=== PATIENT | male | born 1995 | race Caucasian/White ===

== ENCOUNTER → 2019-03-09 14:53 | Outpatient (CLI) | payer OTHER, SELFPAY ==
[2019-03-09 19:53] LABS: Amphetamine/Metha Screen,Urine Positive ng/mL (<1000); Barbiturates Screen,Urine Negative ng/mL (<200); Benzodiazepines Screen,Urine Positive ng/mL (<200); Cannabinoid Screen,Urine Positive ng/mL (<50); Cocaine Screen,Urine Positive ng/mL (<300); Methadone Screen,Urine Negative ng/mL (<300); Opiate Screen,Urine Negative ng/mL (<300); Phencyclidine Screen,Urine Negative ng/mL (<25)
== END ==
PROVIDERS: Visit Provider Nurse Practitioner Psychiatric/Mental Health
DX: Z02.83 Encounter for blood-alcohol and blood-drug test (principal)
CPT/HCPCS: 80305

== ENCOUNTER → 2019-04-27 14:45 | Outpatient (POV) | payer OTHER, SELFPAY | PROVIDERS: Visit Provider Dermatology | DX: Z00.00 Encounter for general adult medical examination without abnormal findings (principal) ==

== ENCOUNTER → 2019-05-05 17:01 | Outpatient (CLI) | payer OTHER, SELFPAY ==
[2019-05-10 09:22] LABS: Amphetamines IA NEGATIVE; Barbituates IA NEGATIVE
[2019-05-10 09:23] LABS: Benzodiazepines IA NEGATIVE; Cocaine & Metabolites IA NEGATIVE
[2019-05-10 09:24] LABS: Phencyclidine IA NEGATIVE
[2019-05-10 09:25] LABS: Opiates IA NEGATIVE; THC (marijauna) metabolite IA NEGATIVE
[2019-05-10 09:26] LABS: Methadone IA NEGATIVE; Oxycodone IA NEGATIVE
[2019-05-10 09:28] LABS: Propoxyphene IA NEGATIVE
== END ==
PROVIDERS: Visit Provider Nurse Practitioner Psychiatric/Mental Health
DX: Z79.899 Other long term (current) drug therapy (principal)
CPT/HCPCS: 36415; 80307

== ENCOUNTER 2019-12-13 18:38 | Emergency (ER) | payer OTHER, SELFPAY ==
[2019-12-13 18:49] VITALS: BP 144/87; PULSE 112; RESP 18; TEMP 36.4; O2SAT 96; BMI 27.3
[2019-12-13 18:59] VITALS: BP 144/87; PULSE 112; RESP 18; TEMP 36.4; O2SAT 96; BMI 27.3
--- NOTE | 2019-12-13 19:12 | HMH.EDUTC ---
[facility] [place] Clinical Impression: Abscess of left leg Cellulitis Qualifiers: Site of cellulitis: extremity Site of cellulitis of extremity: lower extremity Laterality: left Qualified Code(s): L03.116 - Cellulitis of left lower limb Disposition: Home, Self-Care Condition on Discharge: Good Instructions: Cellulitis, Boil Additional Instructions: Apply warm wet compresses to the affected sites three or four times per day for 15 minutes as tolerated. Take the antibiotics as directed. Apply the topical antibiotics (mupirocin) as directed. Follow up with your regular doctor. GO TO THE ER FOR ANY WORSENING SYMPTOMS OR CONCERNS Prescriptions: Ibuprofen [Ibuprofen 800mg Tablet] 800 mg PO Q8HP PRN #20 tab PRN Reason: Moderate Pain Transmission Status: Received by [id number] Sulfamethoxazole/Trimethoprim [Bactrim DS tablet] 1 each PO BID 10 Days #20 tab Transmission Status: Received by [id number] Mupirocin [Bactroban 2% Ointment 22gm tube] 1 applicatio TP TID 7 Days #1 tube Transmission Status: Received by [id number] cephALEXin [Keflex 500mg Cap] 500 mg PO Q6H 10 Days #40 cap Transmission Status: Received by [id number] Referrals: Patrick Tineo MD [Primary Care Provider] - Forms: Work/School Release Time of Disposition: 19:25 Medical Decision Making - Medical Records Medical records reviewed: No: I reviewed the patient's medical records. - Souleymane Inquiry Pt receiving controlled substance: No Vital Signs: 12/13/19 18:49 12/13/19 18:59 12/13/19 19:45 Temperature 97.5 F L 97.5 F L 97.5 F L Temperature Source Oral Oral Pulse Rate 112 H Pulse Rate [Left Radial] 112 H 112 H Respiratory Rate 18 18 18 Blood Pressure 144/87 H Blood Pressure [Right Arm] 144/87 H 144/87 H Blood Pressure Mean [Right Arm] 106 106 Blood Pressure Source [Right Arm] Automatic Cuff Blood Pressure Position [Right Arm] Sitting 02 Sat by Pulse Oximetry 96 96 Oxygen Delivery Method Room Air Room Air Orders (Tests/Meds): ED MEDICATIONS Discontinued Medications Generic Name Dose Route Start Last Admin Trade Name Freq PRN Reason Stop Dose Admin Ceftriaxone Sodium 1 gm 09/07/20 19:14 12/13/19 19:25 Rocephin 1gm Vial IM 12/13/19 19:15 1 gm ONCE ONE Administration Protocol Lidocaine HCl 0 ml 12/13/19 19:14 12/13/19 19:25 Lidocaine 1% 10ml Mdv IM 12/13/19 19:15 2.1 ml ONCE ONE Administration ORDERS Category Date Time Status Wound Culture and Gram Stain Stat Micro 12/13/19 19:15 Results [facility] [place] - General Stated complaint: left leg pain, open sore infection Time Seen by Provider: 12/13/19 19:12 Mode of Arrival: Ambulatory Source of Information: Patient Limitations: No Limitations Description of Symptoms (Recalled from Triage Doc. by RN): PATIENT C/O RED, SCABBED, AND PAINFUL AREA BEHIND LEFT KNEE HEENT Symptoms (Recalled from RN notes): No Resp Symptoms (Recalled from RN notes): No Skin Symptoms (Recalled from RN notes): Yes MS Symptoms (Recalled from RN notes): No Functional Status (Recalled from RN notes): WNL - History of Present Illness Provider Complaint: He states that over the past 1 week, he has had a sore place on the back of his left knee. He states that it got more swollen and painful around it over the past 2 days. - Related Data Home Medications Medication Instructions Recorded Confirmed lisinopril 10 mg tablet 10 mg PO DAILY 05/10/19 09/02/19 Previous Rx's Medication Instructions Recorded fluticasone furoate 100 1 inh INHALATION DAILY #60 each 06/15/19 mcg-vilanterol 25 mcg/dose inhalation powder albuterol sulfate 90 mcg/actuation 1 inh INHALATION QID PRN #6.7 g 10/13/19 aerosol inhaler lisdexamfetamine 50 mg capsule 50 mg PO DAILY #30 cap 10/28/19 lisdexamfetamine 50 mg capsule 50 mg PO DAILY #30 cap 11/26/19 Ibuprofen [Ibuprofen 800mg 800 mg PO Q8HP PRN #20 tab 12/13/19 T
[2019-12-13 19:45] VITALS: BP 144/87; PULSE 112; RESP 18; TEMP 36.4; O2SAT 96
== END 2019-12-13 19:47 | disposition home or self-care (01) ==
PROVIDERS: Emergency Provider Nurse Practitioner Family; PCP Emergency Medicine
DX: L03.116 Cellulitis of left lower limb (principal); F17.210 Nicotine dependence, cigarettes, uncomplicated
CPT/HCPCS: 87070; 87077; 87186; 87205; 96372; 99201

== ENCOUNTER 2019-12-13 20:11 | Emergency (ER) | payer OTHER, SELFPAY ==
[2019-12-13 20:13] VITALS: BP 157/100; PULSE 87; RESP 16; TEMP 36.9; O2SAT 95; BMI 27.3
--- NOTE | 2019-12-13 20:31 | PC.NURSE ---
at bedside with US machine examining pt leg
[2019-12-13 20:43] LABS: Basophils # 0.1 K/mm3 (0-0.2); Basophils % 0.6 % (0.1-2.0); Eosinophils # 0.2 K/mm3 (0.0-0.4); Eosinophils % 1.8 % (0.1-12.0); Lymphocytes # 1.5 K/mm3 (0.7-4.5); Lymphocytes % 15.6 % (10-50); Mean Corpuscular HGB Conc 34.9 g/dL (31.8-35.4); Mean Corpuscular Hemoglobin 35.6 pg (27.0-31.2); Mean Platelet Volume 7.9 fl (7.4-10.4); Monocytes # 0.6 K/mm3 (0.1-1.0); Monocytes % 6.5 % (1.7-9.3); Neutrophils # 7.2 K/mm3 (1.8-7.8); Neutrophils % 75.5 % (37.0-80.0); Platelet Count 216 K/mm3 (142-424); Red Blood Count 5.19 M/mm3 (4.60-6.20); Red Cell Distribution Width 12.7 % (11.5-17.5); White Blood Count 9.6 K/mm3 (4.8-10.8)
[2019-12-13 20:46] LABS: Chloride 101 mmol/L (98-107); Potassium 3.2 mmoL/L (3.5-5.1); Sodium 142 mmol/L (136-145)
[2019-12-13 20:49] LABS: Alanine Aminotransferase 181 U/L (12-78); Alkaline Phosphatase 99 U/L (38-126); Anion Gap 15.2 mEq/L (5-15); Aspartate Amino Transferase 215 U/L (17-59); Bilirubin,Total 1.2 mg/dl (0.2-1.3); Blood Urea Nitrogen 4 mg/dl (9-20); Carbon Dioxide 29 mmol/L (22.0-30.0); Creatinine Clearance Estimated 145 mL/min (50-200); Estimated Glomerular Filt Rate 103 ml/min (>60); GFR (African American) 124 ML/MIN (>60)
[2019-12-13 20:50] LABS: Albumin Level 4.2 g/dl (3.5-5.0); Albumin/Globulin Ratio 1.3 (1.1-1.8); Globulin 3.2 g/dL (1.3-3.2); Glucose 121 mg/dl (74-100); Hemoglobin 18.7 g/dL (14.1-18.0); Total Protein,Serum 7.4 g/dl (6.3-8.2)
[2019-12-13 20:51] LABS: Lactic Acid 2.1 mmol/L (0.7-2.1)
--- NOTE | 2019-12-13 20:51 | HMH.EDGENADL ---
ED Disposition Clinical Impression: Cellulitis Qualifiers: Site of cellulitis: extremity Site of cellulitis of extremity: lower extremity Laterality: left Qualified Code(s): L03.116 - Cellulitis of left lower limb Disposition: Home, Self-Care Condition on Discharge: Good Instructions: DI for Skin Abscess, Cellulitis Additional Instructions: please obtain a repeat CMP to evaluate your liver enzymes. Prescriptions: Sulfamethoxazole/Trimethoprim [Bactrim DS tablet] 1 each PO BID #14 tab Prescription Printed cephALEXin [Cephalexin 500mg Tab] 500 mg PO Q6H #28 tab Prescription Printed Referrals: Patrick Tineo MD [Primary Care Provider] - - Critical Care Critical Care Time: No Attestation: On 12/13/19, the high probability of a clinically significant, sudden or life threatening deterioration of the following system(s) required my full and direct attention, intervention and personal management. The time I documented below is in addition to time spent performing reported procedures but includes the following listed in this critical care notation. Medical Decision Making - Medical Records Medical records reviewed: Yes: I reviewed the patient's medical records. - Souleymane Inquiry Pt receiving controlled substance: No Vital Signs: 12/13/19 20:13 Temperature 98.5 F Temperature Source Oral Pulse Rate [Right] 87 Respiratory Rate 16 Blood Pressure [Right Arm] 157/100 H Blood Pressure Mean [Right Arm] 119 Blood Pressure Source [Right Arm] Automatic Cuff Blood Pressure Position [Right Arm] Sitting 02 Sat by Pulse Oximetry 95 Oxygen Delivery Method Room Air - Lab Data Lab Results 12/13/19 20:20: WBC 9.6, RBC 5.19, Hgb 18.7 H*, Hct 53.0 H, MCV 102.0 H, MCH 35.6 H, MCHC 34.9, RDW 12.7, Plt Count 216, MPV 7.9, Neut % (Auto) 75.5, Lymph % (Auto) 15.6, Ramsey % (Auto) 6.5, Eos % (Auto) 1.8, Baso % (Auto) 0.6, Neut # (Auto) 7.2, Lymph # (Auto) 1.5, Ramsey # (Auto) 0.6, Eos # (Auto) 0.2, Baso # (Auto) 0.1, ESR 2 12/13/19 20:20: Sodium 142, Potassium 3.2 L, Chloride 101, Carbon Dioxide 29, Anion Gap 15.2 H, BUN 4 L, Creatinine 0.90, Estimated Creat Clear 145, Estimated GFR 103, Est GFR ( Amer) 124, Glucose 121 H, Calcium 9.0, Total Bilirubin 1.2, AST 215 H, ALT 181 H, Alkaline Phosphatase 99, C-Reactive Protein 4.2 H, Total Protein 7.4, Albumin 4.2, Globulin 3.2, Albumin/Globulin Ratio 1.3 12/13/19 20:20: Lactate 2.1 Result diagrams: 12/13/19 20:20 12/13/19 20:20 Orders (Tests/Meds): ED MEDICATIONS Discontinued Medications Generic Name Dose Route Start Last Admin Trade Name Freq PRN Reason Stop Dose Admin Cephalexin HCl 500 mg 12/13/19 20:57 Cephalexin 500mg Capsule PO 12/13/19 20:58 ONCE ONE Protocol Potassium Chloride 30 meq 12/13/19 20:56 Micro-K 10meq Capsule PO 12/13/19 20:57 ONCE ONE Trimethoprim/Sulfamethoxazole 1 each 12/13/19 20:57 Bactrim Ds Tablet PO 12/13/19 20:58 ONCE ONE Protocol ORDERS Category Date Time Status Blood Culture Stat Micro 12/13/19 20:20 Received Medical Decision Narrative: In summary patient is a 24-year-old male presenting for rash. On examination patient appears to have cellulitis, patient did not meet Sirs criteria given white count, lack of tachycardia tachypnea and temperature. Patient bedside ultrasound demonstrating no abscess or drainable fluid collection. Ultrasound findings consistent with cellulitis. Patient was given IM Rocephin, given his history of abscesses he possibly has MRSA, this will not cover. Patient was given Bactrim and Keflex. Patient was discharged home. Blood cultures were obtained. Patient amenable to plan. Patient given 1 L bolus of lactated Ringer's and labs significant for hypokalemia. Potassium was repleted. Patient did have elevated liver enzymes however not significant elevated. Patient to follow-up with a primary care doctor for repeat CMP in 1 week. General Adult HPI
[2019-12-13 20:55] LABS: C-Reactive Protein 4.2 mg/L (0-4)
[2019-12-13 21:08] LABS: Erythrocyte Sedimentation Rate 2 mm/hr (0-15)
[2019-12-13 21:29] VITALS: BP 147/98; PULSE 85; RESP 16; TEMP 36.8; O2SAT 98
== END 2019-12-13 21:31 | disposition home or self-care (01) ==
PROVIDERS: Emergency Provider Emergency Medicine; PCP Emergency Medicine
DX: L03.116 Cellulitis of left lower limb (principal); I10 Essential (primary) hypertension; F17.210 Nicotine dependence, cigarettes, uncomplicated
CPT/HCPCS: 80053; 83605; 85025; 85651; 86140; 87040; 99283

== ENCOUNTER 2021-12-14 10:11 | Observation (INO) | payer OTHER, SELFPAY ==
[2021-12-14] VITALS (13 sets, daily range): BP systolic 123–162; BP diastolic 74–111; PULSE 72–97; RESP 16–181; TEMP 36.6–36.9; O2SAT 96–99; BMI 27.3; BMI 26.8
[2021-12-14 10:42] LABS: Microscopic, Urine URINE MICROSCOPIC (MICROSCOPIC)
[2021-12-14 10:44] LABS: Basophils # 0.1 K/mm3 (0-0.2); Basophils % 1.2 % (0.1-2.0); Eosinophils # 0.1 K/mm3 (0.0-0.4); Hematocrit 50.6 % (42.0-52.0); Hemoglobin 17.2 g/dL (14.1-18.0); Lymphocytes # 0.7 K/mm3 (0.7-4.5); Lymphocytes % 9.3 % (10-50); Mean Corpuscular HGB Conc 33.9 g/dL (31.8-35.4); Mean Corpuscular Hemoglobin 34.9 pg (27.0-31.2); Mean Platelet Volume 8.8 fl (7.4-10.4); Monocytes # 0.5 K/mm3 (0.1-1.0); Monocytes % 6.3 % (1.7-9.3); Neutrophils # 6.4 K/mm3 (1.8-7.8); Neutrophils % 82.2 % (37.0-80.0); Platelet Count 185 K/mm3 (142-424); Red Blood Count 4.92 M/mm3 (4.60-6.20); Red Cell Distribution Width 13.2 % (11.5-17.5); White Blood Count 7.8 K/mm3 (4.8-10.8)
[2021-12-14 10:45] LABS: Appearance,Urine CLEAR (Clear); Blood, Urine Negative (Negative); Color,Urine ORANGE (Yellow); Glucose,Urine (UA) TRACE (Negative); Ketones,Urine TRACE (Negative); Leukocyte Esterase,Urine Negative (Negative); Nitrate,Urine POSITIVE (Negative); PH,Urine 6.5 (5.0-8.5); Protein,Urine 1+ (Negative); Specific Gravity, Urine 1.025 (1.005-1.030); Urobilinogen,Urine >=8.0 EU/dl (0.2)
[2021-12-14 10:47] LABS: Bilirubin,Urine 2+ (Negative)
[2021-12-14 10:51] LABS: Alanine Aminotransferase 174 U/L (12-78); Albumin Level 4.7 g/dl (3.5-5.0); Albumin/Globulin Ratio 1.3 (1.1-1.8); Alkaline Phosphatase 127 U/L (38-126); Anion Gap 14.3 mEq/L (5-15); Aspartate Amino Transferase 191 U/L (17-59); Bilirubin,Total 2.9 mg/dl (0.2-1.3); Blood Urea Nitrogen 3 mg/dl (9-20); Calcium 9.2 mg/dl (8.4-10.2); Carbon Dioxide 31 mmol/L (22.0-30.0); Chloride 96 mmol/L (98-107); Creatinine Clearance Estimated 183 mL/min (50-200); Estimated Glomerular Filt Rate 135 ml/min (>60); GFR (African American) 164 ML/MIN (>60); Globulin 3.6 g/dL (1.3-3.2); Glucose 130 mg/dl (74-100); Lipase 536 U/L (23-300); Potassium 3.3 mmoL/L (3.5-5.1); Sodium 138 mmol/L (136-145); Total Protein,Serum 8.3 g/dl (6.3-8.2)
[2021-12-14 10:52] LABS: Ethyl Alcohol 153 mg/dl (0-10)
[2021-12-14 10:59] LABS: WBC,Urine Occasional #/hpf (0-3)
--- NOTE | 2021-12-14 10:59 | CT_ITS ---
FINAL REPORT CLINICAL HISTORY: abdominal pain, luq pain FINDINGS: CT OF THE ABDOMEN AND PELVIS WITH CONTRAST Axial CT images of the abdomen and pelvis were obtained after the administration of intravenous contrast. Coronal reformatted images were also obtained and reviewed.This study was performed with techniques to keep radiation doses as low as reasonably achievable (ALARA). Individualized dose reduction techniques using automated exposure control or adjustment of mA and/or kV according to the patient's size were employed. Abdomen: The lung bases are clear. The heart is normal in size. There is mild fatty infiltration of the liver. The gallbladder is present. The spleen is unremarkable. No adrenal mass is present. The pancreas has an unremarkable appearance. The kidneys are normal, without evidence of mass or hydronephrosis. The aorta is normal in caliber. There is no free fluid or adenopathy. No mass or abnormal fluid collection is seen. There are multiple fluid-filled small bowel loops that are nonspecific and could represent enteritis. There is a small umbilical hernia containing fat. Pelvis: The appendix is normal. The urinary bladder is unremarkable. No inflammatory process is seen. There is no evidence of mass or adenopathy. There is no evidence of bowel obstruction. IMPRESSION: Multiple fluid-filled small bowel loops are nonspecific and could represent enteritis. Reviewed, Interpreted and Dictated by Jose G Szymnaski III, MD Transcribed by Edson Gaines Authenticated and [facility]
[2021-12-14 11:00] LABS: Bacteria,Urine Trace /lpf; Mucus,Urine 2+ /lpf
[2021-12-14 11:11] LABS: Amphetamine/Metha Screen,Urine Negative ng/ml (<1000); Barbiturates Screen,Urine Negative ng/ml (<200)
[2021-12-14 11:12] LABS: Benzodiazepines Screen,Urine Negative ng/ml (<200)
[2021-12-14 11:13] LABS: Cannabinoid Screen,Urine Positive ng/ml (<50); Cocaine Screen,Urine Negative ng/ml (<300)
[2021-12-14 11:14] LABS: Methadone Screen,Urine Negative ng/ml (<300); Phencyclidine Screen,Urine Negative ng/ml (<25)
[2021-12-14 11:15] LABS: Opiate Screen,Urine Negative ng/ml (<300)
--- NOTE | 2021-12-14 11:41 | PC.NURSE ---
COVID SWAB SENT TO LAB
[2021-12-14 11:42] LABS: Coronavirus 19, PCR Not Detected (NotDetected); Influenza A, PCR Not Detected (NotDetected); Influenza B, PCR Not Detected (NotDetected)
--- NOTE | 2021-12-14 11:51 | PC.NURSE ---
PT IN CT
--- NOTE | 2021-12-14 11:55 | HMH.EDGENADL ---
Discharge Plan Disposition Patient Disposition: Admitted As Inpatient Condition: Good Chief Complaint: Abdominal Pain Clinical Impressions Clinical Impression: Pancreatitis, Acute hypokalemia Discharge ED Provider: Charleen Gee HPI General Chief complaint: Abdominal Pain Stated complaint: left side pain Time Seen by Provider: 12/14/21 10:28 Mode of Arrival: Ambulatory Source of Information: Patient Limitations: No Limitations Description of Symptoms (Recalled from ER Triage Doc. by RN): to ed per pvt car with c/o upper abd pain, vomiting, diff urinating, dark urine x 3 days. pt states he drinks ETOH 1.5 pints daily. pt states he would like to go to rehab for etoh abuse. History of Present Illness HPI narrative: The patient is a 26 year old male with a history of alcohol abuse who presents to the ED with abdominal pain. He states that it has been going on for a few days and keeping him up at night. It is associated with nonbloody nonbilious N/V. He has never had pancreatitis but he feels like thats what it might be. He has had subjective fever/chills. No diarrhea, chest pain, shortness of breath, headache. His last drink was early this morning around maybe 4 or 5 am. He drinks daily for the last 5 years. He says he has stopped for periods before and never had a withdrawal seizure but did feel like he had DTs and was confused, tremulous, etc. He is interested in rehab. Related Data Home Medications Medication Instructions Recorded Confirmed albuterol sulfate 90 mcg/actuation 1 inh inhalation QIDP PRN 12/14/21 12/14/21 aerosol inhaler (Proventil HFA) shortness of breath or wheezing Allergies Allergy/AdvReac Type Severity Reaction Status Date / Time No Known Allergies Allergy Verified 01/30/21 13:46 [facility] Social History Smoking Status: Never smoker alcohol intake: current counseling given: Yes substance use type: denies use current occupational status: employed Travel in the last 8 weeks: None number of children: 0 ROS Obtained: Yes Systems reviewed as appropriate & no additional complaints except as documented Physical Exam General General appearance: alert and in no apparent distress Head Head exam: atraumatic and normocephalic Eye Eye exam: Present PERRL and EOMI; Absent scleral icterus ENT ENT exam: Present normal exam Neck Neck exam: Present normal inspection Chest Chest inspection: Present normal inspection and symmetric chest wall rise Respiratory Respiratory exam: Absent respiratory distress or accessory muscle use Cardiovascular Cardiovascular exam: Present regular rate and normal rhythm Abdominal Exam Abdominal exam: Present soft and tenderness; Absent distention Abdominal tenderness: Present LUQ and epigastrium; Absent RUQ Neurological Exam Neurological exam: Present alert, oriented X3 and CN II-XII intact Medical Decision Making Medical Records Medical records reviewed: Yes I reviewed the patient's medical records. Souleymane Inquiry Pt receiving controlled substance: No Vital Signs: 12/14/21 10:12 12/14/21 10:35 12/14/21 11:00 Temperature 98 F Temperature Source Oral Pulse Rate 85 82 Pulse Rate [Radial] 97 H Respiratory Rate 20 18 181 H Blood Pressure 162/101 H 152/99 H Blood Pressure [Right Arm] 162/105 H Blood Pressure Mean 116 115 Blood Pressure Mean [Right Arm] 124 Blood Pressure Position [Right Arm] Sitting 02 Sat by Pulse Oximetry 97 99 98 Oxygen Delivery Method Room Air 12/14/21 11:31 12/14/21 12:00 12/14/21 12:30 Temperature Temperature Source Pulse Rate 86 72 80 Pulse Rate [Radial] Respiratory Rate 18 18 Blood Pressure 144/96 H 157/109 H 152/111 H Blood Pressure [Right Arm] Blood Pressure Mean 112 125 125 Blood Pressure Mean [Right Arm] Blood Pressure Position [Right Arm] 02 Sat by Pulse Oximetry 99 99 96 Oxygen Delivery Method
--- NOTE | 2021-12-14 12:58 | PC.NURSE ---
spoke with nadege coker at this time r/t care management consult. Nadege asked if pt has a preference on a facility to go to. Pt reports to me he has been to [facility] in [place] previously and said he would be okay to go back there.
--- NOTE | 2021-12-14 13:07 | PC.NURSE ---
DAWSON GÓMEZ speaking with Dr. Garner who is electronic system engineer for service pts.
--- NOTE | 2021-12-14 13:11 | SW/DCPLANNER ---
Addendum entered by Nadege Singer 12/17/21 10:19: Patient will discharge to [facility]. [facility] will send transportation for this patient. Addendum entered by Nadege Singer 12/17/21 09:37: Per Admissions w/ [facility] this patient has been accepted to [facility] or [place] location and can discharge today. [facility] has stated they will need to speak with patient this AM. I have notified patient to make contact w/ Admissions Dept at [facility] this AM. Addendum entered by Nadege Singer 12/17/21 08:08: Patient is medically stable for discharge today. Patient expressed that he is still interested in [facility] once medically stable for discharge. Patient is ready for discharge today. I have asked patient to please contact [facility] this AM in regards of being stable for discharge today. Addendum entered by Nadege Singer 12/14/21 13:41: Patient speaking with intake at [facility]. Original Note: I received a referral for this patient regarding etoh abuse. Patient stated that he has been to [facility] in [place] in the past and would prefers to return there for rehab. I called and spoke with Intake at [facility] and patient information has been faxed. I will provide this patient with phone number ([phone]) to call and speak with Intake.
--- NOTE | 2021-12-14 13:15 | PC.NURSE ---
notified care management of admission, spoke with quintin
--- NOTE | 2021-12-14 13:20 | PC.NURSE ---
DANITA FROM MANAGEMENT IS SPEAKING WITH PT REGARDING [facility]
--- NOTE | 2021-12-14 13:34 | PC.NURSE ---
PT ON PHONE WITH INTAKE AT [facility] .
--- NOTE | 2021-12-14 13:41 | HMH.PHAINT1 ---
Pharmacy Intervention Comments: MEDICATION RECONCILIATION COMPLETED ON PATIENT USING EXTERNAL FILL HISTORY FROM PHARMACY AND JR REPORT. -EMELYN CHAN
--- NOTE | 2021-12-14 14:17 | PC.NURSE ---
report given to shannan walsh on second floor at this time, states she will send staff down to transport pt.
--- NOTE | 2021-12-14 14:26 | PC.NURSE ---
2nd IV started rt arm
--- NOTE | 2021-12-14 15:26 | EXP.HP ---
History of Present Illness *Admission Date: 12/14/21 *Reason for visit:: abdominal pain, vomiting *History of present illness: The patient is a 26 year old male with a history of alcohol abuse who presents to the ED with abdominal pain. He states that it has been going on for a few days and keeping him up at night. It is associated with nonbloody nonbilious N/V. He has never had pancreatitis but he feels like that's what it might be. He has had subjective fever/chills. No diarrhea, chest pain, shortness of breath, headache. His last drink was early this morning around maybe 4 or 5 am. He drinks daily for the last 5 years. He says he has stopped for periods before and never had a withdrawal seizure but did feel like he had DTs and was confused, tremulous, etc. He is interested in rehab. (above as per ER physician) The patient was evaluated in the emergency room and his LFTs and bilirubin were elevated as was his lipase. His tox screen was positive for marijuana and his serum alcohol level was 153. He had a CT of the abdomen and pelvis which showed multiple fluid-filled small bowel loops representing a possible enteritis. He was admitted with pancreatitis and has been started on a rally pack, morphine for pain, Zofran for nausea, diazepam for withdrawal, and IV fluids. [facility] Medical History Alcohol abuse Surgical History (Updated 12/14/21 @ 15:31 by KEVIN Contreras) H/O hand surgery H/O oral surgery Family History (Updated 12/14/21 @ 15:31 by KEVIN Contreras) Cancer Social History Smoking Status: Never smoker alcohol intake: current counseling given: Yes substance use type: denies use current occupational status: employed Travel in the last 8 weeks: None number of children: 0 Review of Systems Constitutional Constitutional: Reports fever(s), Reports malaise and Reports weakness Eyes Eyes: Denies blurry vision and Denies diplopia ENT Ears, Nose, Mouth, and Throat: Denies nasal congestion and Denies sore throat *Cardiovascular Cardiovascular: Denies chest pain and Denies dyspnea *Respiratory Respiratory: Denies cough and Denies dyspnea *Gastrointestinal Gastrointestinal: Reports abdominal pain (epigastric), Denies loose stools, Reports nausea and Reports vomiting *Genitourinary Genitourinary: Denies difficulty urinating and Denies dysuria *Musculoskeletal Musculoskeletal: Denies arthralgias *Neurologic Neurologic: Reports tremor(s) and Reports weakness Meds Home Medications and Allergies Home Medications Medication Instructions Recorded Confirmed Type albuterol sulfate 90 mcg/actuation 1 inh inhalation QIDP PRN 12/14/21 12/14/21 History aerosol inhaler (Proventil HFA) shortness of breath or wheezing New Prescriptions to Start Prescriptions: Allergies Allergy/AdvReac Type Severity Reaction Status Date / Time No Known Allergies Allergy Verified 01/30/21 13:46 Exam Data for Last 24 hours Vital signs and Labs for Last 24 Hours: Temp Pulse Resp BP Pulse Ox 98.4 F 92 H 16 142/97 H 96 12/14/21 14:57 12/14/21 14:57 12/14/21 14:57 12/14/21 14:57 12/14/21 14:57 Laboratory Results - last 24 hr 12/14/21 09:24: Urine Opiates Screen Negative, Urine Methadone Screen Negative, Ur Barbituates Screen Negative, Ur Phencyclidine Scrn Negative, Ur Amphetamines Screen Negative, U Benzodiazepines Scrn Negative, Urine Cocaine Screen Negative, U Marijuana (THC) Screen Positive H 12/14/21 10:30: Urine Color Burns, Urine Appearance Clear, Urine pH 6.5, Ur Specific [place] 1.025, Urine Protein 1+, Urine Glucose (UA) Trace, Urine Ketones Trace, Urine Blood Negative, Urine Nitrate Positive, Urine Bilirubin 2+ A, Urine Urobilinogen >=8.0, Ur Leukocyte Esterase Negative, Urine WBC Occasional, Ur Squamous Epith Cells 5-10, Urine Bacteria Trace, Urine Mucus 2+ 12/14/21 10:30: WBC 7.8, RBC 4.92, Hgb 17.2, Hct 50.6, MCV 103.0 H, MCH 34.9
--- NOTE | 2021-12-14 15:54 | EXP.PHA.VTE ---
[facility] Pharmacy VTE Monitoring Patient Demographics Admission date: 12/14/21 Report Date: 12/14/21 Time: 15:54 Patient Allergies No Known Allergies Allergy (Verified 01/30/21 13:46) Height: 1.73 m Weight: 80.059 kg Current Active Problems (Updated 12/14/21 @ 15:35 by KEVIN Contreras) Hypokalemia (Acute) Elevated bilirubin (Acute) Elevated LFTs (Acute) Alcohol abuse (Chronic) Pancreatitis (Acute) Acute hypokalemia (Acute) VTE Risk Labs: VTE Related Lab Results Hgb 17.2 g/dL (14.1-18.0) 12/14/21 10:30 Hct 50.6 % (42.0-52.0) 12/14/21 10:30 Plt Count 185 K/mm3 (142-424) 12/14/21 10:30 BUN 3 mg/dl (9-20) L 12/14/21 10:30 Creatinine 0.70 mg/dl (0.66-1.25) 12/14/21 10:30 Estimated Creat Clear 183 mL/min (50-200) 12/14/21 10:30 VTE Score: 0 Prophylaxis VTE Prophylaxis Ordered?: Yes Types of VTE Prophylaxis: TEDS Knee High Location of Applied Device: Bilateral Lower Extremeties
--- NOTE | 2021-12-14 16:05 | PC.NURSE ---
PT IS AOX4, ABLE TO MAKE NEEDS KNOWN TO STAFF, INDEPENDENT TO RESTROOM. DOES NOT REQUIRE O2 SUPPORT. SEIZ PRECAUTIONS IN PLACE. CIWA SCORE OF 2. DENIES N/V/D. HAS NOT VOICED AND ABD DISCOMFORT SINCE ARRIVING TO THE FLOOR.
[2021-12-15] VITALS (11 sets, daily range): BP systolic 143–160; BP diastolic 87–118; PULSE 60–93; RESP 16–18; TEMP 36.4–37.1; O2SAT 97–99; BMI 27.0
--- NOTE | 2021-12-15 00:24 | PC.NURSE ---
MD WARD PAGED DUE TO PT BP BEING ELEVATED 150'S OVER 110. STATED TO MONITOR BP AND HE WOULD ADDRESS BP IN MORNING ROUNDS DUE TO PT BEING ASYMPTOMATIC.
--- NOTE | 2021-12-15 04:30 | PC.NURSE ---
NO ACUTE CHANGES SINCE PREVIOUS ASSESSMENT. PT HAS RESTED INTERMITTENTLY THIS SHIFT. PT HAS BEEN VERY RESTLESS AND ANXIOUS THIS SHIFT MEDICATED PER MAR. CIWA SCOURS HAVE BEEN 4-9 THIS SHIFT. PT HAS C/O ANXIETY AND RESTLESSNESS THROUGHOUT THE SHIFT. PT IS ALSO NOTED TO HAVE TREMORS IN BILATERAL UPPER EXTREMITIES WHEN ARMS ARE EXTENDED. NO C/O N/V/D. PT'S BP HAS BEEN ELEVATED THIS SHIFT 150-160 OVER 85-110. MD WARD AWARE. PT HAS HAD NO C/O CP OR SHORTNESS OF BREATH. CALL PLASENCIA WITHIN REACH. SEIZURE PRECAUTIONS IN PLACE FOR PT SAFETY.
[2021-12-15 07:49] LABS: Alanine Aminotransferase 168 U/L (12-78); Albumin Level 4.2 g/dl (3.5-5.0); Albumin/Globulin Ratio 1.4 (1.1-1.8); Alkaline Phosphatase 122 U/L (38-126); Anion Gap 9.7 mEq/L (5-15); Aspartate Amino Transferase 246 U/L (17-59); Bilirubin,Total 4.1 mg/dl (0.2-1.3); Blood Urea Nitrogen 4 mg/dl (9-20); Calcium 8.9 mg/dl (8.4-10.2); Carbon Dioxide 31 mmol/L (22.0-30.0); Chloride 99 mmol/L (98-107); Creatinine Clearance Estimated 181 mL/min (50-200); Estimated Glomerular Filt Rate 135 ml/min (>60); GFR (African American) 164 ML/MIN (>60); Glucose 87 mg/dl (74-100); Lipase 280 U/L (23-300); Potassium 3.7 mmoL/L (3.5-5.1); Sodium 136 mmol/L (136-145); Total Protein,Serum 7.2 g/dl (6.3-8.2)
[2021-12-15 07:57] LABS: Cholesterol 192 mg/dl (140-200); Triglycerides 49 mg/dl (30-150); VLDL Cholesterol 10 mg/dL (0-40)
[2021-12-15 08:07] LABS: Direct LDL Cholesterol 40.47 mg/dL (100-129)
[2021-12-15 08:10] LABS: Chol/HDL Ratio 1.4 (1-3.5); HDL Cholesterol 142 mg/dl (40-60)
--- NOTE | 2021-12-15 08:11 | PC.NURSE ---
RN notified of elevated bp.
--- NOTE | 2021-12-15 09:48 | PC.NURSE ---
Pt was hungry. Nurse said to call down for food. Ordered pt an early lunch tray.
--- NOTE | 2021-12-15 10:21 | EXP.PN ---
Subjective *Date: 12/15/21 *Time: 10:21 Interval history: He rested fair last night. Still having pain but less intense. He is still requiring IV morphine. Alcohol withdrawal symptoms have been controlled with the diazepam. Denies nausea or vomiting and feels hungry. Exam Data for Last 24 hours Vital signs and Labs for Last 24 Hours: Temp Pulse Resp BP Pulse Ox 97.7 F 82 16 151/118 H 97 12/15/21 08:00 12/15/21 08:00 12/15/21 08:00 12/15/21 08:51 12/15/21 08:00 Laboratory Results - last 24 hr 12/14/21 09:24: Urine Opiates Screen Negative, Urine Methadone Screen Negative, Ur Barbituates Screen Negative, Ur Phencyclidine Scrn Negative, Ur Amphetamines Screen Negative, U Benzodiazepines Scrn Negative, Urine Cocaine Screen Negative, U Marijuana (THC) Screen Positive H 12/14/21 10:30: Urine Color Organ, Urine Appearance Clear, Urine pH 6.5, Ur Specific [place] 1.025, Urine Protein 1+, Urine Glucose (UA) Trace, Urine Ketones Trace, Urine Blood Negative, Urine Nitrate Positive, Urine Bilirubin 2+ A, Urine Urobilinogen >=8.0, Ur Leukocyte Esterase Negative, Urine WBC Occasional, Ur Squamous Epith Cells 5-10, Urine Bacteria Trace, Urine Mucus 2+ 12/14/21 10:30: WBC 7.8, RBC 4.92, Hgb 17.2, Hct 50.6, MCV 103.0 H, MCH 34.9 H, MCHC 33.9, RDW 13.2, Plt Count 185, MPV 8.8, Neut % (Auto) 82.2 H, Lymph % (Auto) 9.3 L, [place] % (Auto) 6.3, Eos % (Auto) 1.0, Baso % (Auto) 1.2, Neut # (Auto) 6.4, Lymph # (Auto) 0.7, [place] # (Auto) 0.5, Eos # (Auto) 0.1, Baso # (Auto) 0.1 12/14/21 10:30: Sodium 138, Potassium 3.3 L, Chloride 96 L, Carbon Dioxide 31 H, Anion Gap 14.3, BUN 3 L, Creatinine 0.70, Estimated Creat Clear 183, Estimated GFR 135, Est GFR ( Amer) 164, Glucose 130 H, Calcium 9.2, Total Bilirubin 2.9 H, AST 191 H, ALT 174 H, Alkaline Phosphatase 127 H, Total Protein 8.3 H, Albumin 4.7, Globulin 3.6 H, Albumin/Globulin Ratio 1.3, Lipase 536 H 12/14/21 10:30: Plasma/Serum Alcohol 153 H 12/14/21 11:40: SARS-CoV-2 (PCR) Not detected, Influenza A Untype (PCR) Not detected, Influenza Type B (PCR) Not detected 12/15/21 07:12: Sodium 136, Potassium 3.7, Chloride 99, Carbon Dioxide 31 H, Anion Gap 9.7, BUN 4 L D, Creatinine 0.70, Estimated Creat Clear 181, Estimated GFR 135, Est GFR ( Amer) 164, Glucose 87 D, Calcium 8.9, Total Bilirubin 4.1 H, AST 246 H D, ALT 168 H, Alkaline Phosphatase 122, Total Protein 7.2, Albumin 4.2 D, Globulin 3.0, Albumin/Globulin Ratio 1.4, Lipase 280 12/15/21 07:12: Triglycerides 49, Cholesterol 192, LDL Cholesterol Direct 40.47 L, VLDL Cholesterol 10, HDL Cholesterol 142 H, Cholesterol/HDL Ratio 1.4 I & O for Last 24 hours: Intake & Output 12/12/21 12/13/21 12/14/21 12/15/21 11:59 11:59 11:59 11:59 Intake Total 1237 / 1237 Output Total 650 / 650 Balance 587 / 587 Weight 180 lb 178 lb 5.663 oz Constitutional Comments: He appears more comfortable today. Lungs are clear. Abdomen is soft and nondistended with mild left upper quadrant tenderness. Assessment and Plan *Assessment and plan (1) Alcoholic pancreatitis: Status: Acute Category: Medical Code(s): K85.20 - Alcohol induced acute pancreatitis without necrosis or infection (2) Alcohol abuse: Status: Chronic Category: Social Hx Code(s): F10.10 - Alcohol abuse, uncomplicated (3) Elevated LFTs: Status: Acute Category: Medical Code(s): R79.89 - Other specified abnormal findings of blood chemistry (4) Elevated bilirubin: Status: Acute Category: Medical Code(s): R17 - Unspecified jaundice (5) Hypokalemia: Status: Acute Category: Medical Code(s): E87.6 - Hypokalemia Assessment and plan all Dx Assessment and Plan All Dx:: Lipase has normalized. Liver functions still increasing. Lipid profile is normal. Will give trial of clear liquids today. Check hepatitis profile and follow-up liver functions tomorrow. structural steel worker has provided him c
--- NOTE | 2021-12-15 12:41 | PC.NURSE ---
Pt unwilling to use urinal when voiding.
--- NOTE | 2021-12-15 12:42 | PC.NURSE ---
RN aware of elevated bp.
--- NOTE | 2021-12-15 13:07 | PC.NURSE ---
Addendum entered by Yefri Sahu RN 12/15/21 13:18: ALSO DISCUSSED ELEVATED BP Original Note: DR WARD NOTIFIED THAT 3RD DOSE OF DIAZEPAM WAS TO BE GIVEN PER [facility]. NO NEW ORDERS AT THIS TIME.
--- NOTE | 2021-12-15 15:18 | PC.NURSE ---
AOX4 BUT HAS BEEN RESTLESS T/O SHIFT. MEDICATED PER MAR WITH PRN DIAZEPAM FOR CIWA SCORE ORDERED. WAS MEDICATED FOR ABD PAIN X1 THIS HSIFT. TOLERATING DIET WELL. DENIES N/V/D. BOWEL SOUNDS ACTIVE X4. BP HAS BEEN ELEVATED THIS SHIFT AND WAS STARTED ON PO AMLODIPINE BY DR WARD, SEIZURE PADS IN PLACE TO BED RAILS FOR PROTECTION. NO NEEDS VOICED AT THIS TIME.
--- NOTE | 2021-12-15 16:23 | PC.NURSE ---
3670-MADE DR WARD AWARE OF PT ELEVATED BP. 5MG PO NORVASC V/O FAXED TO PHARMACY
[2021-12-16] VITALS (8 sets, daily range): BP systolic 136–142; BP diastolic 86–100; PULSE 63–77; RESP 16–20; TEMP 36.4–36.8; O2SAT 99–100; BMI 26.6
--- NOTE | 2021-12-16 01:54 | PC.NURSE ---
Pt pulled out IV, IV reinserted. 3rd hourly dose of IV valium given, Dr. Garner notified. Per MD, continue giving valium per MAR based on CIWA.
--- NOTE | 2021-12-16 02:55 | PC.NURSE ---
Pt removed IV again. Bandage applied. CIWA 15. Medicated per JUN. Pt wants to leave floor and walk around outside, explained to pt why he can't leave floor at this time. supervisor engine assembly sitting in room with pt.
--- NOTE | 2021-12-16 05:37 | PC.NURSE ---
At beginning of my shift, pt able to answer all orientation questions appropriately, but experiencing some symptoms of ETOH withdrawal. Medicated per JUN. Later on, pt became confused, not knowing where he was, trying to leave room. This RN attempted to redirect and reorient pt. Pt confused but cooperating with staff. Inserted new IV. Medicated per JUN for CIWA score. Talked to human resources operations coordinator MD about pt status and need for 3rd hourly dose of valium. After pt pulled out two IVs, and tried leaving floor, histotechnologist supervisor sat with pt in room. Continued to medicated per JUN for CIWA scores. At this time, pt is resting quietly. Call light in reach. Seizure pads on for safety. No needs voiced at this time.
[2021-12-16 11:23] LABS: Basophils # 0.1 K/mm3 (0-0.2); Basophils % 2.4 % (0.1-2.0); Eosinophils # 0.2 K/mm3 (0.0-0.4); Eosinophils % 4.4 % (0.1-12.0); Hematocrit 45.1 % (42.0-52.0); Lymphocytes % 18.9 % (10-50); Mean Corpuscular HGB Conc 33.3 g/dL (31.8-35.4); Mean Corpuscular Hemoglobin 34.6 pg (27.0-31.2); Mean Corpuscular Volume 103.9 fl (80-94); Mean Platelet Volume 9.5 fl (7.4-10.4); Monocytes # 0.4 K/mm3 (0.1-1.0); Monocytes % 8.1 % (1.7-9.3); Neutrophils # 3.5 K/mm3 (1.8-7.8); Neutrophils % 66.2 % (37.0-80.0); Platelet Count 133 K/mm3 (142-424); Red Blood Count 4.35 M/mm3 (4.60-6.20); Red Cell Distribution Width 13.1 % (11.5-17.5); White Blood Count 5.3 K/mm3 (4.8-10.8)
[2021-12-16 11:26] LABS: Chloride 102 mmol/L (98-107); Sodium 137 mmol/L (136-145)
[2021-12-16 11:27] LABS: Potassium 3.6 mmoL/L (3.5-5.1)
[2021-12-16 11:29] LABS: Alanine Aminotransferase 143 U/L (12-78); Alkaline Phosphatase 108 U/L (38-126); Aspartate Amino Transferase 208 U/L (17-59); Blood Urea Nitrogen 7 mg/dl (9-20); Creatinine Clearance Estimated 179 mL/min (50-200); Estimated Glomerular Filt Rate 135 ml/min (>60); GFR (African American) 164 ML/MIN (>60)
[2021-12-16 11:30] LABS: Albumin/Globulin Ratio 1.4 (1.1-1.8); Anion Gap 9.6 mEq/L (5-15); Calcium 8.6 mg/dl (8.4-10.2); Carbon Dioxide 29 mmol/L (22.0-30.0); Globulin 2.9 g/dL (1.3-3.2); Glucose 91 mg/dl (74-100); Total Protein,Serum 6.9 g/dl (6.3-8.2)
--- NOTE | 2021-12-16 11:53 | EXP.PN ---
Subjective *Date: 12/16/21 *Time: 11:53 Interval history: He is now 48 hours since his last drink of alcohol and began having increased agitation, confusion, and hallucinations last night. He required several doses of the Valium through the night and is finally resting this morning. Prior to becoming confused last night, he had requested an increase in his diet which was advanced to a bland diet that he tolerated well. Exam Data for Last 24 hours Vital signs and Labs for Last 24 Hours: Temp Pulse Resp BP Pulse Ox 97.6 F 76 20 140/86 99 12/16/21 08:00 12/16/21 08:00 12/16/21 08:00 12/16/21 08:00 12/16/21 08:00 Laboratory Results - last 24 hr 12/16/21 11:14: WBC 5.3 D, RBC 4.35 L, Hgb 15.0, Hct 45.1, MCV 103.9 H, MCH 34.6 H, MCHC 33.3, RDW 13.1, Plt Count 133 L D, MPV 9.5, Neut % (Auto) 66.2, Lymph % (Auto) 18.9, [place] % (Auto) 8.1, Eos % (Auto) 4.4, Baso % (Auto) 2.4 H, Neut # (Auto) 3.5, Lymph # (Auto) 1.0, [place] # (Auto) 0.4, Eos # (Auto) 0.2, Baso # (Auto) 0.1 12/16/21 11:14: Sodium 137, Potassium 3.6, Chloride 102, Carbon Dioxide 29, Anion Gap 9.6, BUN 7 L D, Creatinine 0.70, Estimated Creat Clear 179, Estimated GFR 135, Est GFR ( Amer) 164, Glucose 91, Calcium 8.6, Total Bilirubin 3.0 H, AST 208 H, ALT 143 H, Alkaline Phosphatase 108, Total Protein 6.9, Albumin 4.0, Globulin 2.9, Albumin/Globulin Ratio 1.4 I & O for Last 24 hours: Intake & Output 12/13/21 12/14/21 12/15/21 12/16/21 11:59 11:59 11:59 11:59 Intake Total 1237 / 1237 1440 / 1440 Output Total 650 / 650 0 / 0 Balance 587 / 587 1440 / 1440 Weight 180 lb 178 lb 5.663 oz 176 lb Constitutional Comments: He is somnolent but arouses. Appears in no distress. Lungs are clear. Heart is regular. Abdomen soft and nondistended with no apparent tenderness. Assessment and Plan *Assessment and plan (1) Alcoholic pancreatitis: Status: Acute Category: Medical Code(s): K85.20 - Alcohol induced acute pancreatitis without necrosis or infection (2) Alcohol abuse: Status: Chronic Category: Social Hx Code(s): F10.10 - Alcohol abuse, uncomplicated (3) Elevated LFTs: Status: Acute Category: Medical Code(s): R79.89 - Other specified abnormal findings of blood chemistry (4) Elevated bilirubin: Status: Acute Category: Medical Code(s): R17 - Unspecified jaundice (5) Hypokalemia: Status: Acute Category: Medical Code(s): E87.6 - Hypokalemia (6) Alcohol withdrawal delirium: Status: Acute Category: Medical Code(s): F10.931 - Alcohol use, unspecified with withdrawal delirium Assessment and plan all Dx Assessment and Plan All Dx:: His pancreatitis is resolving and he was able to tolerate a bland diet last night. Liver functions are marginally improved today. He began experiencing alcohol withdrawal symptoms last night and has required Valium and is somnolent this morning. We will continue close monitoring and treatment of his withdrawal symptoms.
[2021-12-16 12:21] LABS: Magnesium 1.9 mg/dl (1.6-2.3)
--- NOTE | 2021-12-16 15:33 | PC.NURSE ---
PT HAS SLEPT FOR MOST OF SHIFT. WAS MEDICATED ONCE FOR CIWA SCORE >8 THIS MORNING WITH PRN VALUIM AND HAS RESTED IN ROOM EVER SINCE. SEIZURE PADS IN PLACE FOR SAFETY. CALL LIGHT WITHIN REACH
[2021-12-17] VITALS: BP 136/86; PULSE 82; RESP 17; TEMP 36.6; O2SAT 100
--- NOTE | 2021-12-17 03:56 | PC.NURSE ---
Pt has done well this shift. Alert and oriented x 4. No hallucinations or confusion thus far during my shift. Pt still experiencing some signs and symptoms of withdrawal. Monitoring CIWAs and medicating per JUN. Pt is resting in bed at this time. No needs or complaints voiced. Call light in reach. Seizure pads on for safety.
[2021-12-17 04:00] VITALS: BP 126/88; PULSE 79; RESP 16; TEMP 36.6; O2SAT 100
[2021-12-17 05:00] VITALS: BMI 25.8
[2021-12-17 08:00] VITALS: BP 146/101; PULSE 70; RESP 16; TEMP 36.4; O2SAT 98
--- NOTE | 2021-12-17 08:13 | PC.NURSE ---
RN aware of elevated bp.
--- NOTE | 2021-12-17 09:53 | EXP.DC.SUM ---
General Admission date:: 12/14/21 Discharge date: 12/17/21 HPI HPI HPI: The patient is a 26 year old male with a history of alcohol abuse who presented to the ED with abdominal pain. He stateed that it had been going on for a few days and kept him up at night. It was associated with nonbloody nonbilious N/V. He had never had pancreatitis but he felt like that's what it was. He had subjective fever/chills. No diarrhea, chest pain, shortness of breath, headache. His last drink was early this morning around maybe 4 or 5 am. He had been drinking daily for the last 5 years. He stated that he had stopped for periods before and never had a withdrawal seizure but did feel like he had DTs and was confused, tremulous, etc. He was interested in rehab. (above as per ER physician) The patient was evaluated in the emergency room and his LFTs and bilirubin were elevated as was his lipase. His tox screen was positive for marijuana and his serum alcohol level was 153. He had a CT of the abdomen and pelvis which showed multiple fluid-filled small bowel loops representing a possible enteritis. He was admitted with pancreatitis and was started on a rally pack, morphine for pain, Zofran for nausea, as well as diazepam for withdrawal, and IV fluids. Hospital Course Hospital Course Hospital Course: On admission patient was started on IV fluids, potassium, diazepam for agitation, rally pack, morphine for pain and Zofran for nausea. He was also placed on bowel rest and alcohol withdrawal protocol with close monitoring for CIWA score. Abdominal pain gradually improved and less intensity. Initially His alcohol withdrawal symptoms were controlled with the diazepam. Lipase normalized and liver functions did gradually improved. To note his lipid profile was normal. He was started on clear liquids which he tolerated well. He was provided with information for [facility] in [place] to pursue his rehab. He did have agitation and confusion and hallucinations 1 night. He required several doses of Valium throughout the night. The following morning he seemed rested. He was advanced to a bland diet which he tolerated well. 11/16/2021 he had slept well throughout the night. He was not agitated in the a.m. Plans were made for him to go to [facility] in [place] today. To note he is eating well without nausea or vomiting and he denied abdominal pain. Exam Data for Last 24 hours Vital signs and Labs for Last 24 Hours: Temp Pulse Resp BP Pulse Ox 97.5 F L 70 16 146/101 H 98 12/17/21 08:00 12/17/21 08:00 12/17/21 08:00 12/17/21 08:00 12/17/21 08:00 Laboratory Results - last 24 hr 12/16/21 11:14: WBC 5.3 D, RBC 4.35 L, Hgb 15.0, Hct 45.1, MCV 103.9 H, MCH 34.6 H, MCHC 33.3, RDW 13.1, Plt Count 133 L D, MPV 9.5, Neut % (Auto) 66.2, Lymph % (Auto) 18.9, [place] % (Auto) 8.1, Eos % (Auto) 4.4, Baso % (Auto) 2.4 H, Neut # (Auto) 3.5, Lymph # (Auto) 1.0, [place] # (Auto) 0.4, Eos # (Auto) 0.2, Baso # (Auto) 0.1 12/16/21 11:14: Sodium 137, Potassium 3.6, Chloride 102, Carbon Dioxide 29, Anion Gap 9.6, BUN 7 L D, Creatinine 0.70, Estimated Creat Clear 179, Estimated GFR 135, Est GFR ( Amer) 164, Glucose 91, Calcium 8.6, Total Bilirubin 3.0 H, AST 208 H, ALT 143 H, Alkaline Phosphatase 108, Total Protein 6.9, Albumin 4.0, Globulin 2.9, Albumin/Globulin Ratio 1.4 12/16/21 11:14: Magnesium 1.9 I & O for Last 24 hours: Intake & Output 12/14/21 12/15/21 12/16/21 12/17/21 11:59 11:59 11:59 11:59 Intake Total 1237 / 1237 1440 / 1440 300 / 300 Output Total 650 / 650 0 / 0 0 / 0 Balance 587 / 587 1440 / 1440 300 / 300 Weight 180 lb 178 lb 5.663 oz 176 lb 170 lb 6 oz Narrative: Constitutional Constitutional: no acute distress Comments: Somewhat lethargic after awakening from sleep *Routine Respiratory Exam Respiratory: Present CTA bilaterally (Anteriorly and posteriorly) *Routine Cardiovascular Exam Cardiovascular: Present RRR *Routine Abdomi
--- NOTE | 2021-12-17 09:57 | EXP.PN ---
Subjective *Date: 12/17/21 *Time: 21:27 Interval history: Patient awakened from sleep for exam. He states he is feeling better today. He states he slept throughout the night. He is eating without problems. He denies hallucinations. Exam Data for Last 24 hours Vital signs and Labs for Last 24 Hours: Temp Pulse Resp BP Pulse Ox 97.5 F L 70 16 146/101 H 98 12/17/21 08:00 12/17/21 08:00 12/17/21 08:00 12/17/21 08:00 12/17/21 08:00 Laboratory Results - last 24 hr 12/16/21 11:14: WBC 5.3 D, RBC 4.35 L, Hgb 15.0, Hct 45.1, MCV 103.9 H, MCH 34.6 H, MCHC 33.3, RDW 13.1, Plt Count 133 L D, MPV 9.5, Neut % (Auto) 66.2, Lymph % (Auto) 18.9, [place] % (Auto) 8.1, Eos % (Auto) 4.4, Baso % (Auto) 2.4 H, Neut # (Auto) 3.5, Lymph # (Auto) 1.0, [place] # (Auto) 0.4, Eos # (Auto) 0.2, Baso # (Auto) 0.1 12/16/21 11:14: Sodium 137, Potassium 3.6, Chloride 102, Carbon Dioxide 29, Anion Gap 9.6, BUN 7 L D, Creatinine 0.70, Estimated Creat Clear 179, Estimated GFR 135, Est GFR ( Amer) 164, Glucose 91, Calcium 8.6, Total Bilirubin 3.0 H, AST 208 H, ALT 143 H, Alkaline Phosphatase 108, Total Protein 6.9, Albumin 4.0, Globulin 2.9, Albumin/Globulin Ratio 1.4 12/16/21 11:14: Magnesium 1.9 I & O for Last 24 hours: Intake & Output 12/14/21 12/15/21 12/16/21 12/17/21 11:59 11:59 11:59 11:59 Intake Total 1237 / 1237 1440 / 1440 300 / 300 Output Total 650 / 650 0 / 0 0 / 0 Balance 587 / 587 1440 / 1440 300 / 300 Weight 180 lb 178 lb 5.663 oz 176 lb 170 lb 6 oz Constitutional Constitutional: no acute distress Comments: Somewhat lethargic after awakening from sleep *Routine Respiratory Exam Respiratory: Present CTA bilaterally (Anteriorly and posteriorly) *Routine Cardiovascular Exam Cardiovascular: Present RRR *Routine Abdominal Exam Abdominal: Present normoactive bowel sounds; Absent tenderness *Routine Extremities Exam Extremities: Absent edema or calf tenderness *Routine Neurological Exam Neurological: Present alert and oriented X3 Routine Psychiatric Exam Psychiatric: Present normal thought process and cooperative Comments: During assessment patient showed no agitation and was cooperative. No tremors were noted. Assessment and Plan *Assessment and plan (1) Alcohol withdrawal delirium: Status: Acute Category: Medical Code(s): F10.931 - Alcohol use, unspecified with withdrawal delirium (2) Alcoholic pancreatitis: Status: Acute Category: Medical Code(s): K85.20 - Alcohol induced acute pancreatitis without necrosis or infection (3) Hypokalemia: Status: Acute Category: Medical Code(s): E87.6 - Hypokalemia (4) Elevated bilirubin: Status: Acute Category: Medical Code(s): R17 - Unspecified jaundice (5) Elevated LFTs: Status: Acute Category: Medical Code(s): R79.89 - Other specified abnormal findings of blood chemistry (6) Alcohol abuse: Status: Chronic Category: Social Hx Code(s): F10.10 - Alcohol abuse, uncomplicated Plan Patient is to transfer today to [facility] in [facility]. Assessment and plan all Dx Assessment and Plan All Dx:: Patient seen and examined. Clinically improved but still requiring oral diazepam for his CIWA score. He has agreed to seek rehab and wants to return to [facility] where he has been before. Care management is working on referral
--- NOTE | 2021-12-19 13:44 | CARE MANAGER ---
Attempted to contact patient x2 related to hospital discharge. GENESIS Sanchez
[2021-12-23 21:49] LABS: Hep A Ab, IgM Negative; Hepatitis B Core Antibody IgM Negative; Hepatitis B Surface Antigen Negative; Hepatitis C Antibody 0.1
== END 2021-12-17 14:17 ==
LOC: ER 10:45 → 2ND 13:57
PROVIDERS: Admitting Provider Family Medicine; Emergency Provider Emergency Medicine; Visit Provider Family Medicine
DX: K85.20 Alcohol induced acute pancreatitis without necrosis or infection (principal); Y90.6 Blood alcohol level of 120-199 mg/100 ml; E87.6 Hypokalemia; F10.931 Alcohol use, unspecified with withdrawal delirium; R17 Unspecified jaundice
CPT/HCPCS: 36415; 74177; 80053; 80061; 80074; 80305; 81001; 83690; 83735; 85025; 99285; C9803; G0378; J2405; Q9967; U0003; U0005